=== PATIENT | female | born 1970 | race Caucasian/White ===

== ENCOUNTER 2020-11-04 14:09 | Emergency (ER) | payer OTHER ==
[~2020-11-04] VITALS: Ht 170.2 cm; Wt 61.2 kg
--- NOTE | 2020-11-04 14:15 | NUR ---
at bedside for assessment
[2020-11-04] MEDS ORDERED: NEOMY/BACITRA/POLYMYXIN B OINT UD PACKET TP ONE ×4 (14:43→14:53)
--- NOTE | 2020-11-04 14:45 | NUR ---
Sutures removed by MD, Triple antibiotic applied, Patient discharged to home in stable condition. Written and verbal after care instructions given. Patient verbalizes understanding of instructions. Stressed follow up or return to ER for worsening s/s.
[2020-11-04 14:48] VITALS: BP 120/71
== END 2020-11-04 14:40 | disposition home or self-care (01) ==
LOC: ER 14:09
DX: S01.01XD Laceration without foreign body of scalp, subsequent encounter (principal); Y09 Assault by unspecified means; G40.909 Epilepsy, unspecified, not intractable, without status epilepticus
CPT/HCPCS: A4663